=== PATIENT | male | born 1960 | race Caucasian/White ===

== ENCOUNTER 2020-07-11 09:18 | Day surgery (SDC) | payer OTHER ==
[2020-07-07 09:47] VITALS: BMI 26.3
[2020-07-11] MEDS ORDERED: PROPOFOL 20 ML ONE ×2 (10:39→12:19)
[2020-07-11] MEDS ORDERED: KETOROLAC TROMETHAMINE 30 MG/1 ML VIAL ONE (10:39)
[2020-07-11] MEDS ORDERED: ceFAZolin SODIUM 1 GM VIAL ONE (10:39)
[2020-07-11] MEDS ORDERED: ONDANSETRON 4 MG/2 ML VIAL ONE (10:39)
[2020-07-11] MEDS ORDERED: DEXAMETHASONE SOD PHOSPHATE 4 MG/1 ML VIAL ONE (10:39)
[2020-07-11] MEDS ORDERED: LIDOCAINE HCL/PF 2% SDV 5ML VIAL ONE (10:39)
[2020-07-11] MEDS ORDERED: SODIUM CHLORIDE 0.9% P/F 10 ML VIAL IJ ONE (10:39)
[2020-07-11] MEDS ORDERED: MIDAZOLAM HCL 2 MG/2 ML SINGLE DOSE VIAL ONE ×2 (10:40)
[2020-07-11] MEDS ORDERED: ROPIVACAINE HCL 0.5% 30ML VIAL ONE (11:26)
[2020-07-11] MEDS ORDERED: ceFAZolin SODIUM 1 GM VIAL IVPB ONE (12:02)
[2020-07-11 14:49] VITALS: BP 126/78; PULSE 81; TEMP 98
== END 2020-07-11 14:49 | disposition home or self-care (01) ==
LOC: FASU 09:18
PROVIDERS: ATTEND Orthopaedic Surgery
PROC: 0QSG04Z Reposition Right Tibia with Internal Fixation Device, Open Approach (ICD-10-PCS; 2020-07-11)
PROC: 0QSJ04Z Reposition Right Fibula with Internal Fixation Device, Open Approach (ICD-10-PCS; principal; 2020-07-11 11:00)
DX: S82.841A Displaced bimalleolar fracture of right lower leg, initial encounter for closed fracture (principal); X58.XXXA Exposure to other specified factors, initial encounter; Y93.89 Activity, other specified; Y92.9 Unspecified place or not applicable; Y99.9 Unspecified external cause status
CPT/HCPCS: 27814; C1713; 73610-TC-RT-FY

== ENCOUNTER 2021-05-28 04:22 | Day surgery (SDC) | payer OTHER ==
[2021-05-28 07:37] VITALS: BMI 26.9
[2021-05-28 09:11] VITALS: BP 103/72; PULSE 67; TEMP 97.1
== END 2021-05-28 09:42 | disposition home or self-care (01) ==
LOC: JASU-ENDO 04:22
PROVIDERS: ATTEND Internal Medicine Gastroenterology
PROC: 0DB68ZX Excision of Stomach, Via Natural or Artificial Opening Endoscopic, Diagnostic (ICD-10-PCS; principal; 2021-05-28 08:15)
DX: K29.50 Unspecified chronic gastritis without bleeding (principal); K31.9 Disease of stomach and duodenum, unspecified; R11.10 Vomiting, unspecified
CPT/HCPCS: 88305-TC; 88342-TC